=== PATIENT | female | born 1985 | race Caucasian/White ===

== ENCOUNTER → 2019-07-23 12:45 | Outpatient (REF) | payer OTHER, SELFPAY | LOC: ANHLAB 12:45 | PROVIDERS: PCP Family Medicine; Visit Provider Nurse Practitioner | DX: L72.0 Epidermal cyst (principal) | CPT/HCPCS: 88304 ==

== ENCOUNTER → 2020-09-15 11:00 | Outpatient (REF) | payer OTHER, SELFPAY | LOC: ANHLAB 11:00 | PROVIDERS: PCP Emergency Medicine; Visit Provider Nurse Practitioner | DX: D22.39 Melanocytic nevi of other parts of face (principal) | CPT/HCPCS: 88305 ==